=== PATIENT | female | born 2000 | race Caucasian/White ===

== ENCOUNTER 2023-04-02 20:40 | Emergency (ER) | payer BC, MEDICAID, SELFPAY ==
[2023-04-02 20:43] VITALS: BP 133/89; PULSE 81; RESP 16; TEMP 37.4; O2SAT 96; BMI 43.9
[2023-04-02 21:01] VITALS: BMI 43.9
--- NOTE | 2023-04-02 21:07 | PC.NURSE ---
pt states that she would only like to be tested for covid and flu and if negative she will go see her pcp tomorrow
[2023-04-02 21:13] LABS: Coronavirus 19, PCR Not Detected (NotDetected); Influenza A, PCR Not Detected (NotDetected); Influenza B, PCR Not Detected (NotDetected)
--- NOTE | 2023-04-02 22:08 | PC.NURSE ---
ROUNDED ON PT NOTHING NEEDED AT THIS TIME, VISITOR AT BS
[2023-04-02 22:21] VITALS: BP 130/85; PULSE 78; RESP 18; TEMP 36.8; O2SAT 96
--- NOTE | 2023-04-02 22:27 | HMH.EDNVD ---
Discharge Plan Disposition Patient Disposition: Home, Self-Care Referrals Follow up/Referrals: Candido Mendoza [Primary Care Provider] - See instructions Clinical Impressions Clinical Impression: Viral syndrome Instructions Patient Instructions: DI for Diarrhea and Traveler's Diarrhea -- Adult Discharge ED Provider: Morena (ED)Shashank Nausea/Vomiting/Diarrhea HPI General Chief complaint: Nausea/Vomiting/Diarrhea Stated complaint: [place]ase[place], aches, diarreha, high fever Time Seen by Provider: 04/02/23 22:00 Mode of Arrival: Wheelchair Source of Information: Patient, Significant Other and Medical Record Limitations: No Limitations Description of Symptoms (Recalled from ER Triage Doc. by RN): pt c/o nauesa, diarrhea, abd pain, body aches since monday that hasn't gotten any better History of Present Illness HPI Narrative: over the last few days yellow diarrhea which has resolved and has achey w/o sig cough - has fever today but denied rash or known exposure MD complaint: diarrhea Onset (ago): day(s) Description of Diarrhea: water Associated Abdominal Pain: No Severity: moderate Associated symptoms: fever/chills Related Data Allergies Allergy/AdvReac Type Severity Reaction Status Date / Time vancomycin Allergy Verified 04/02/23 21:01 [facility] Disclaimer: The information contained in this section may have been updated after the patient was seen, as this information can be updated by other users. Social History Smoking Status: Never smoker alcohol intake: never current occupational status: employed Travel in the last 8 weeks: None ROS Obtained: Yes All systems reviewed & no additional complaints except as documented Physical Exam General General appearance: alert Head Head exam: normocephalic Eye Eye exam: Present PERRL and EOMI ENT ENT exam: Present mucous membranes moist Neck Neck exam: Present trachea midline Respiratory Respiratory exam: Absent respiratory distress Cardiovascular Cardiovascular exam: Present regular rate Abdominal Exam Abdominal exam: Present soft Extremities Exam Extremities exam: Absent joint swelling Neurological Exam Neurological exam: Present alert, oriented X3 and CN II-XII intact; Absent motor sensory deficit Psychiatric Psychiatric exam: Present normal affect Skin Skin exam: Absent rash Medical Decision Making Medical Records Medical records reviewed: Yes I reviewed the patient's medical records. Keegan Inquiry Pt receiving controlled substance: No Vital Signs: 04/02/23 20:43 04/02/23 22:21 04/02/23 22:21 Temperature 99.4 F 98.2 F Temperature Source Oral Oral Pulse Rate 78 Pulse Rate [Right] 81 Respiratory Rate 16 18 Blood Pressure 130/85 Blood Pressure [Right Arm] 133/89 Blood Pressure Mean [Right Arm] 103 02 Sat by Pulse Oximetry 96 Oxygen Delivery Method Room Air Room Air Lab Data Lab results reviewed: Yes I reviewed the patient's lab results. Lab Results 04/02/23 21:00: SARS-CoV-2 (PCR) Not detected, Influenza A Untype (PCR) Not detected, Influenza Type B (PCR) Not detected Orders (Tests/Meds): ORDERS Category Date Time Status Rapid PCR Covid and Flu A/B Stat Lab 04/02/23 21:00 Completed Medical Decision Narrative: pt with prob viral syndrome and does not wish any workup at this time Critical Care Time Critical Care Time Critical Care Time: No Attestation: On 04/02/23, the high probability of a clinically significant, sudden or life threatening deterioration of the following system(s) required my full and direct attention, intervention and personal management. The time I documented below is in addition to time spent performing reported procedures but includes the following listed in this critical care notation.
== END 2023-04-02 22:36 | disposition home or self-care (01) ==
PROVIDERS: Emergency Provider Emergency Medicine; PCP Family Medicine
DX: R11.0 Nausea (principal); R19.7 Diarrhea, unspecified; R50.9 Fever, unspecified; B34.9 Viral infection, unspecified
CPT/HCPCS: 87636; 99282; 99283